=== PATIENT | male | born 1965 | race African-American/Black ===

== ENCOUNTER 2016-09-21 11:16 | Emergency (ER) | payer BC ==
[2016-09-21 11:28] VITALS: BP 130/75; PULSE 67; TEMP 97.9; BMI 31.6
--- NOTE | 2016-09-21 12:49 | PDOC ---
History of Present Illness - General Chief Complaint: Pain Stated Complaint: PAIN Time Seen by Provider: 09/21/16 12:27 History Source: Patient - History of Present Illness Timing/Duration: other Associated Symptoms: denies: fever/chills, nausea/vomiting Past History - Past Medical History Allergies/Adverse Reactions: Allergies Allergy/AdvReac Type Severity Reaction Status Date / Time No Known Allergies Allergy Verified 09/21/16 11:23 Home Medications: Ambulatory Orders Amox-Tr/K Cl [Augmentin - 875Mg Tablet] 1 tab PO BID #20 tablet 03/29/15 Levothyroxine [Synthroid -] 50 mcg PO DAILY 03/29/15 Olmesartan/Amlodipin/Hcthiazid [Tribenzor 40-10-25 mg Tablet] 1 each PO DAILY HTN: Yes Hypercholesterolemia: Yes Thyroid Disease: Yes - Surgical History Abdominal Surgery: Yes (HERNIA) - Immunization History Immunization Up to Date: Yes - Psycho/Social/Smoking Cessation Hx Anxiety: No Suicidal Ideation: No Smoking Status: No Smoking History: Never smoked Have you smoked in the past 12 months: No Number of Cigarettes Smoked Daily: 0 Hx Alcohol Use: No Drug/Substance Use Hx: No Substance Use Type: None Review of Systems - Review of Systems Constitutional: No: Chills, Fever ABD/GI: No: Blood Streaked Bowels, Constipated, Nausea, Rectal Bleeding, Vomiting : No: Dysuria *Physical Exam - Vital Signs Last Vital Signs Temp Pulse Resp BP Pulse Ox 97.9 F 67 19 130/75 97 09/21/16 11:23 09/21/16 11:23 09/21/16 11:23 09/21/16 11:23 09/21/16 11:23 - Physical Exam General Appearance: Yes: Appropriately Dressed. No: Apparent Distress HEENT: positive: Normal Voice Neck: positive: Supple Respiratory/Chest: negative: Respiratory Distress Gastrointestinal/Abdominal: positive: Soft. negative: Tender Rectal Exam: positive: normal exam, normal rectal tone. negative: hemorrhoids Extremity: positive: Normal Inspection Integumentary: positive: Dry, Warm Neurologic: positive: Fully Oriented, Alert, Normal Mood/Affect Medical Decision Making - Medical Decision Making 09/21/16 12:46 50 yo male, h/o HTN, borderline DM, p/w buttocks pain that he only feels when he sits down, mostly while driving. Has been evaluated by his PMD and states he had negative labs. Denies rectal pain on defecation, constipation or rectal bleeding. Pt well appearing and stable w/ unremarkable exam. Pain possible MSK. Dc w/ pain control 09/21/16 12:55 *DC/Admit/Observation/Transfer Diagnosis at time of Disposition: Buttock pain - Discharge Dispostion Disposition: HOME Condition at time of disposition: Good - Patient Instructions Additional Instructions: The cause of your pain is most likely muscular. Take motrin for pain and consider sitting on a cushion while driving
== END 2016-09-21 12:58 | disposition home or self-care (01) ==
LOC: JERFT 11:16
DX: M79.1 Myalgia (principal); M54.5 Low back pain
CPT/HCPCS: 99281-25

== ENCOUNTER 2021-06-26 23:43 | Observation (INO) | payer BC, OTHER ==
[2021-06-27] MEDS ORDERED: methylPREDNISolone NA SUCC 125 MG/2 ML VIAL IVPUSH ONE (00:03)
[2021-06-27] MEDS ORDERED: methylPREDNISolone NA SUCC 125 MG/2 ML VIAL ONE (00:06)
[2021-06-27] MEDS: ALBUTEROL SO4 2.5/IPRATROPIUM 0.5 INH SOL 3 ML VIAL.NEB. NEB SCH ×6 (00:15→19:59)
[2021-06-27 01:03] LABS: BASO % 0.7 % (0-2.0); EOS % 7.2 % (0-4.5); HEMOGLOBIN 15.8 GM/dL (11.7-16.9); LYMPH % 34.5 % (8-40); MCH 32.5 pg (25.7-33.7); MCHC 34.3 g/dl (32.0-35.9); MEAN CELL VOLUME 94.7 fl (80-96); MEAN PLT VOLUME 7.5 fl (7.5-11.1); MONO % 7.6 % (3.8-10.2); PLATELET COUNT 278 10^3/uL (134-434); RBC 4.86 M/mm3 (4.00-5.60); RDW 12.4 % (11.9-15.9); WHITE BLOOD COUNT 6.7 K/mm3 (4.0-10.0)
[2021-06-27 01:24] LABS: CALCIUM 9.3 mg/dL (8.5-10.1)
[2021-06-27 01:25] LABS: ALBUMIN 4.2 g/dl (3.4-5.0); BLOOD UREA NITROGEN 17.5 mg/dL (7-18)
[2021-06-27] MEDS ORDERED: MAGNESIUM SULF 50% (8.12 MEQ/2 ML-1 GM VIAL) IVPB ONE (01:25)
[2021-06-27 01:28] LABS: CREATININE 0.9 mg/dL (0.55-1.3)
[2021-06-27 01:30] LABS: BILIRUBIN,TOTAL 0.6 mg/dL (0.2-1); TOT PROT 7.3 g/dl (6.4-8.2)
[2021-06-27 01:33] LABS: N-TERMINAL BNP 9.6 pg/ml (5-125)
[2021-06-27] MEDS ORDERED: MAGNESIUM SULFATE IN WATER 2 GM/50 ML IVPB IVPB ONE (01:47)
[2021-06-27] MEDS ORDERED: ALBUTEROL SO4 2.5/IPRATROPIUM 0.5 INH SOL 3 ML VIAL.NEB. NEB PRN (02:53)
[2021-06-27] MEDS ORDERED: methylPREDNISolone NA SUCC 40 MG/1 ML VIAL IVPUSH SCH (03:00)
[2021-06-27 03:23] LABS: PH,URINE 5.5 (5.0-8.0); URINE APPEARANCE CLEAR; URINE BILIRUBIN NEGATIVE (NEGATIVE); URINE COLOR YELLOW; URINE GLUCOSE (UA) NEGATIVE (NEGATIVE); URINE KETONE 1+ (NEGATIVE); URINE LEUK ESTERASE NEGATIVE (NEGATIVE); URINE NITRITE NEGATIVE (NEGATIVE); URINE PROTEIN NEGATIVE (NEGATIVE); URINE UROBILINOGEN 0.2 mg/dL (0.2-1.0)
[2021-06-27 03:41] LABS: COCAINE, UR NEGATIVE (NEGATIVE); METHADONE, UR NEGATIVE (NEGATIVE); OPIATES, URI NEGATIVE (NEGATIVE); PHENCYCLIDINE,URINE NEGATIVE (NEGATIVE); URINE AMPHETAMINES NEGATIVE (NEGATIVE); URINE BARBITURATES NEGATIVE (NEGATIVE); URINE BENZODIAZEPINES NEGATIVE (NEGATIVE)
[2021-06-27] MEDS ORDERED: methylPREDNISolone NA SUCC 40 MG/1 ML VIAL ONE ×3 (05:59→16:11)
[2021-06-27] MEDS: methylPREDNISolone NA SUCC 40 MG/1 ML VIAL IVPUSH SCH ×4 (06:53→21:10)
[2021-06-27] MEDS: INSULIN SLIDING SCALE (NOVOLOG) 1 VIAL SQ SCH ×4 (08:22→21:10)
[2021-06-27 08:54] LABS: BASO % 0.1 % (0-2.0); HEMATOCRIT 45.7 % (35.4-49); HEMOGLOBIN 15.5 GM/dL (11.7-16.9); LYMPH % 11.7 % (8-40); MCHC 33.8 g/dl (32.0-35.9); MEAN CELL VOLUME 94.4 fl (80-96); MEAN PLT VOLUME 7.7 fl (7.5-11.1); MONO % 0.4 % (3.8-10.2); NEUT % 87.8 % (42.8-82.8); PLATELET COUNT 279 10^3/uL (134-434); RBC 4.84 M/mm3 (4.00-5.60); RDW 12.1 % (11.9-15.9); WHITE BLOOD COUNT 5.9 K/mm3 (4.0-10.0)
[2021-06-27 09:14] LABS: CALCIUM 8.7 mg/dL (8.5-10.1)
[2021-06-27 09:15] LABS: BLOOD UREA NITROGEN 14.3 mg/dL (7-18); MAGNESIUM 2.3 mg/dL (1.8-2.4)
[2021-06-27] MEDS ORDERED: LORATADINE 10 MG TABLET ONE (09:25)
[2021-06-27] MEDS ORDERED: LOSARTAN POTASSIUM 50 MG TABLET ONE (09:25)
[2021-06-27] MEDS ORDERED: amLODIPine BESYLATE 10 MG TABLET (FP) ONE (09:25)
[2021-06-27] MEDS ORDERED: LORATADINE 10 MG TABLET PO SCH (10:00)
[2021-06-27] MEDS ORDERED: LOSARTAN POTASSIUM 50 MG TABLET PO SCH (10:00)
[2021-06-27] MEDS ORDERED: amLODIPine BESYLATE 10 MG TABLET (FP) PO SCH (10:00)
[2021-06-27] MEDS ORDERED: ALBUTEROL SO4 2.5/IPRATROPIUM 0.5 INH SOL 3 ML VIAL.NEB. NEB ONE (16:10)
[2021-06-27 20:13] VITALS: BMI 30.8
[2021-06-27] MEDS ORDERED: INSULIN (NOVOLOG) ASPART 100 UNITS/ML 10ML VIAL ONE (21:08)
[2021-06-27] MEDS ORDERED: MONTELUKAST NA 10 MG TABLET PO SCH ×2 (22:00)
[2021-06-27] MEDS ORDERED: INSULIN (LEVEMIR) 100 UNITS/ML UNITS SQ SCH (22:00)
[2021-06-28] MEDS: methylPREDNISolone NA SUCC 40 MG/1 ML VIAL IVPUSH SCH ×2 (03:30→09:20)
[2021-06-28] MEDS: INSULIN SLIDING SCALE (NOVOLOG) 1 VIAL SQ SCH ×2 (06:12→11:10)
[2021-06-28 07:14] VITALS: BP 129/75; PULSE 76; TEMP 98.2
[2021-06-28] MEDS: ALBUTEROL SO4 2.5/IPRATROPIUM 0.5 INH SOL 3 ML VIAL.NEB. NEB SCH ×2 (07:45→11:34)
[2021-06-28 09:14] LABS: BASO % 0.2 % (0-2.0); HEMATOCRIT 45.3 % (35.4-49); HEMOGLOBIN 15.5 GM/dL (11.7-16.9); LYMPH % 9.8 % (8-40); MCH 32.4 pg (25.7-33.7); MCHC 34.3 g/dl (32.0-35.9); MEAN CELL VOLUME 94.4 fl (80-96); MEAN PLT VOLUME 8.1 fl (7.5-11.1); MONO % 1.8 % (3.8-10.2); NEUT % 88.2 % (42.8-82.8); PLATELET COUNT 309 10^3/uL (134-434); RDW 12.1 % (11.9-15.9); WHITE BLOOD COUNT 9.9 K/mm3 (4.0-10.0)
[2021-06-28 09:34] LABS: CALCIUM 9.1 mg/dL (8.5-10.1)
[2021-06-28 09:35] LABS: BLOOD UREA NITROGEN 14.6 mg/dL (7-18)
[2021-06-28 09:36] LABS: MAGNESIUM 2.6 mg/dL (1.8-2.4)
[2021-06-28 09:38] LABS: CREATININE 0.9 mg/dL (0.55-1.3)
[2021-06-28 09:40] LABS: BILIRUBIN,TOTAL 0.7 mg/dL (0.2-1); TOT PROT 7.1 g/dl (6.4-8.2)
[2021-06-28] MEDS ORDERED: amLODIPine BESYLATE 10 MG TABLET (FP) PO SCH (10:00)
[2021-06-28] MEDS ORDERED: HYDROCHLOROTHIAZIDE 25 MG TABLET (FP) PO ONE ×2 (10:00)
[2021-06-28] MEDS ORDERED: PANTOPRAZOLE 40 MG TABLET PO SCH (10:00)
[2021-06-28] MEDS ORDERED: LORATADINE 10 MG TABLET PO SCH (10:00)
[2021-06-28] MEDS ORDERED: LOSARTAN POTASSIUM 50 MG TABLET PO SCH (10:00)
== END 2021-06-28 13:45 | disposition home or self-care (01) ==
LOC: JER 23:43 → JERBED 06-27 02:26 → UNDOADMIN 06-27 02:26 → J6S 06-27 18:01
PROVIDERS: ADMIT Hospitalist; ATTEND Nurse Practitioner Acute Care
PROC: 3E0F7GC Introduction of Other Therapeutic Substance into Respiratory Tract, Via Natural or Artificial Opening (ICD-10-PCS; principal; 2021-06-27)
PROC: 3E013VG Introduction of Insulin into Subcutaneous Tissue, Percutaneous Approach (ICD-10-PCS; 2021-06-27)
PROC: 3E033GC Introduction of Other Therapeutic Substance into Peripheral Vein, Percutaneous Approach (ICD-10-PCS; 2021-06-27)
PROC: 3E033GC Introduction of Other Therapeutic Substance into Peripheral Vein, Percutaneous Approach (ICD-10-PCS; 2021-06-27)
DX: J45.41 Moderate persistent asthma with (acute) exacerbation (principal); R06.02 Shortness of breath; E11.9 Type 2 diabetes mellitus without complications; I10 Essential (primary) hypertension; E66.9 Obesity, unspecified; Z68.30 Body mass index [BMI] 30.0-30.9, adult
CPT/HCPCS: 36415; 71046-TC-FY; 71250-TC; 80048; 80053; 80307; 81003; 82962; 83036; 83735; 83880; 84484; 85025; 87804; 87807; 93005; 93010; 93306-TC; 94640; 96372; 96374; 96375; 99285-25; C9803-CS; G0378; U0003; U0005

== ENCOUNTER 2021-09-28 15:34 | Emergency (ER) | payer OTHER ==
[2021-09-28 15:51] VITALS: BP 108/67; PULSE 97; RESP 18; TEMP 101.7; BMI 36.9
[2021-09-28] MEDS ORDERED: ACETAMINOPHEN 500 MG TABLET (FP) PO ONE (16:50)
[2021-09-28] MEDS ORDERED: ACETAMINOPHEN 325 MG TABLET (FP) ONE (16:52)
== END 2021-09-28 19:43 | disposition home or self-care (01) ==
LOC: JER 15:34
DX: R50.9 Fever, unspecified (principal); R51.9 Headache, unspecified
CPT/HCPCS: 0241U-QW; 99283-25

== ENCOUNTER 2024-05-15 00:39 | Emergency (ER) | payer OTHER ==
[2024-05-15 00:44] VITALS: TEMP 97.9; BMI 31.4
[2024-05-15] MEDS ORDERED: ALBUTEROL SO4 2.5/IPRATROPIUM 0.5 INH SOL 3 ML VIAL.NEB. NEB ONE ×2 (00:47→01:20)
[2024-05-15] MEDS: ALBUTEROL SO4 2.5/IPRATROPIUM 0.5 INH SOL 3 ML VIAL.NEB. NEB SCH (01:36)
[2024-05-15 01:41] LABS: ABSOLUTE IMMATURE GRANULOCYTES 0.02 x10^3/uL (0.0-0.031); BASOPHILS # 0.03 x10^3/uL (0.01-0.08); EOSINOPHIL % 13.3 % (0.8-7.0); EOSINOPHILS # 0.91 x10^3/uL (0.04-0.54); HEMATOCRIT 51.6 % (40.1-51.0); HEMOGLOBIN 17.3 g/dL (13.7-17.5); MCHC 33.5 g/dl (32.3-36.5); MEAN CELL VOLUME 93.5 fl (79.0-92.2); MEAN PLT VOLUME 9.4 fl (9.4-12.4); MONOCYTE # 0.33 x10^3/uL (0.30-0.82); MONOCYTE % 4.8 % (5.3-12.2); PLATELET COUNT # 276 x10^3/uL (163-337); RDW 11.8 % (12.2-16.1)
[2024-05-15 01:42] LABS: VENOUS BASE EXCESS 0.2 mmol/L (-2-2); VENOUS O2 SATURATION 68.7 % (70-80); VENOUS PCO2 49.9 mmHg (38-52); VENOUS PH 7.348 (7.310-7.410)
[2024-05-15 01:56] LABS: CALCIUM 9.1 mg/dL (8.5-10.1)
[2024-05-15 01:57] LABS: ALBUMIN 4.2 g/dl (3.4-5.0); BLOOD UREA NITROGEN 21.5 mg/dL (7-18)
[2024-05-15 01:59] LABS: POTASSIUM 3.8 mmol/L (3.5-5.1)
[2024-05-15 02:01] LABS: BILIRUBIN,TOTAL 0.4 mg/dL (0.2-1); TOT PROT 7.3 g/dl (6.4-8.2)
[2024-05-15 04:30] VITALS: BP 132/81; PULSE 84; RESP 18
== END 2024-05-15 04:30 | disposition home or self-care (01) ==
LOC: JER 00:39
PROC: 3E0F7GC Introduction of Other Therapeutic Substance into Respiratory Tract, Via Natural or Artificial Opening (ICD-10-PCS; principal; 2024-05-15)
DX: R06.02 Shortness of breath (principal); R07.89 Other chest pain; R05.9 Cough, unspecified; R06.2 Wheezing
CPT/HCPCS: 0241U-QW; 36415; 71045-TC-FY; 80053; 82803; 83880; 84484; 85025; 93005; 93010; 99285-25